=== PATIENT | female | born 1980 | race Caucasian/White ===

== ENCOUNTER → 2016-10-28 23:31 | Outpatient (CLI) | payer MEDICAID ==
[2014-01-29 10:36] VITALS: BMI 27.1
[~2016-10-28 23:31] MED LIST: ADIPEX-P37.5 MG PO; ESTRACE 0.5 MG0.5 MG PO; KLONOPIN0.5 MG PO
== END | disposition home or self-care (01) ==
LOC: D.LABREF 23:31
DX: E16.1 Other hypoglycemia (principal); R10.13 Epigastric pain

== ENCOUNTER → 2017-02-28 12:28 | Outpatient (CLI) | payer MEDICAID ==
[2014-01-29 10:36] VITALS: BMI 27.1
== END | disposition home or self-care (01) ==
LOC: D.CT 10:00
DX: R91.8 Other nonspecific abnormal finding of lung field (principal)

== ENCOUNTER → 2017-07-07 12:42 | Outpatient (CLI) | payer MEDICAID ==
[2014-01-29 10:36] VITALS: BMI 27.1
== END | disposition home or self-care (01) ==
LOC: D.RAD 12:42
DX: R13.12 Dysphagia, oropharyngeal phase (principal); K21.9 Gastro-esophageal reflux disease without esophagitis; K44.9 Diaphragmatic hernia without obstruction or gangrene

== ENCOUNTER → 2017-07-11 09:06 | Outpatient (CLI) | payer MEDICAID ==
[2014-01-29 10:36] VITALS: BMI 27.1
== END | disposition home or self-care (01) ==
LOC: D.RAD 09:00
DX: R13.12 Dysphagia, oropharyngeal phase (principal); K21.9 Gastro-esophageal reflux disease without esophagitis; K44.9 Diaphragmatic hernia without obstruction or gangrene

== ENCOUNTER → 2017-08-24 09:21 | Outpatient (CLI) | payer OTHER ==
[2014-01-29 10:36] VITALS: BMI 27.1
== END | disposition home or self-care (01) ==
LOC: D.OPS 09:21
DX: K21.0 Gastro-esophageal reflux disease with esophagitis (principal)

== ENCOUNTER 2017-09-08 09:26 | Emergency (ER) | payer OTHER ==
[2014-01-29 10:36] VITALS: BMI 27.1
== END 2017-09-08 11:20 | disposition home or self-care (01) ==
LOC: D.ER 09:26
DX: G43.909 Migraine, unspecified, not intractable, without status migrainosus (principal); V43.52XA Car driver injured in collision with other type car in traffic accident, initial encounter; Y93.89 Activity, other specified; Y92.410 Unspecified street and highway as the place of occurrence of the external cause

== ENCOUNTER 2017-11-29 13:43 | Emergency (ER) | payer OTHER ==
[~2017-11-29] VITALS: Ht 149.9 cm; Wt 64.3 kg
[2017-11-29 13:50] VITALS: Ht 149.9 cm; Wt 64.3 kg
[2017-11-29] MEDS ORDERED: ATIVAN1 MG PO (13:52)
[2017-11-29] MEDS ORDERED: AMITRIPTYLINE150 MG PO (13:53)
[2017-11-29] MEDS ORDERED: OMEPRAZOLE40 MG PO (13:53)
[2017-11-29] MEDS ORDERED: PEPCID20 MG PO (13:53)
[2017-11-29] MEDS ORDERED: SYMBICORT 16010.2 GM INH (13:54)
[2017-11-29] MEDS ORDERED: CELEXA40 MG PO (13:54)
[2017-11-29 14:38] LABS: BASOPHILS 0.7 % (0-2); EOSINOPHILS 8.7 % (0-7); HEMATOCRIT 38.5 % (36.0-48.0); HEMOGLOBIN 13.3 g/dL (12-16); IMMATURE GRANULOCYTES 0.3 % (0-5); LYMPHOCYTES 36.8 % (15-50); MCH 30.5 pg (26.0-34.0); MCHC 34.5 g/dL (31.0-37.0); MCV 88.3 fL (80.0-100.0); MEAN PLATELET VOLUME 8.9 fL (7.4-10.4); NEUTROPHILS 46.5 % (40-80); PLATELET COUNT 216 10x3/uL (130-400); RBC 4.36 10x6/uL (4.00-5.40); WBC 6.7 10x3/uL (4.8-10.8)
[2017-11-29 14:57] LABS: ALBUMIN 3.3 g/dL (3.4-5.0); ALKALINE PHOSPHATASE 72 U/L (46-116); ALT (SGPT) 30 U/L (10-68); CALC OSMOLALITY 283 mosm/kg (275-300); CALCIUM 8.4 mg/dL (8.5-10.1); CARBON DIOXIDE 28.6 mmol/L (21.0-32.0); CHLORIDE - SERUM 105 mmol/L (98-107); CREATININE - SERUM 0.7 mg/dL (0.6-1.3); GLUCOSE 117 mg/dL (74-106); POTASSIUM - SERUM 3.5 mmol/L (3.5-5.1); PROTEIN - SERUM 6.2 g/dL (6.4-8.2); SODIUM 143 mmol/L (136-145); UREA NITROGEN 8 mg/dL (7-18); eGFR NON AFRICAN AMERICAN > 90 mL/min (90-120)
[2017-11-29 15:08] LABS: CKMB 1.2 U/L (0.0-3.6); CREATINE KINASE 148 UL (21-215); TROPONIN-I < 0.017 ng/mL (0.000-0.060)
[2017-11-29] MEDS ORDERED: VIBRAMYCIN 100100 MG PO (15:40)
[2017-11-29 16:13] VITALS: BP 133/71
[2017-12-02 03:11] LABS: RMSF IGM 0.27 index (0.00-0.89)
[2017-12-04 15:23] LABS: EHRLICHIA CHAFF IGG Negative (Neg:<1:64); EHRLICHIA CHAFF IGM Negative (Neg:<1:20); HGE IGG TITER Negative (Neg:<1:64); HGE IGM TITER Negative (Neg:<1:20)
[2017-12-04 17:12] LABS: F. TULARENSIS - IGG Negative (()); F. TULARENSIS - IGM Negative (())
== END 2017-11-29 16:14 | disposition home or self-care (01) ==
LOC: D.ER 13:43
PROVIDERS: Family Medicine
DX: T14.8XXA Other injury of unspecified body region, initial encounter (principal); W57.XXXA Bitten or stung by nonvenomous insect and other nonvenomous arthropods, initial encounter; Y93.89 Activity, other specified; Y92.89 Other specified places as the place of occurrence of the external cause; R53.83 Other fatigue; R07.9 Chest pain, unspecified; R11.10 Vomiting, unspecified; R20.2 Paresthesia of skin; K21.9 Gastro-esophageal reflux disease without esophagitis; F17.200 Nicotine dependence, unspecified, uncomplicated

== ENCOUNTER 2018-01-09 11:38 | Emergency (ER) | payer OTHER ==
[~2018-01-09] VITALS: Ht 149.9 cm; Wt 65.9 kg
[~2018-01-09 11:38] MED LIST changes: +AMITRIPTYLINE150 MG PO; +ATIVAN1 MG PO; +CELEXA40 MG PO; +OMEPRAZOLE40 MG PO; +PEPCID20 MG PO; +SYMBICORT 16010.2 GM INH; +VIBRAMYCIN 100100 MG PO
[2018-01-09 11:52] VITALS: BP 116/81; Ht 149.9 cm; Wt 65.9 kg
[2018-01-09 12:20] LABS: APPEARANCE CLEAR (CLEAR); BILIRUBIN NEGATIVE (NEGATIVE); COLOR YELLOW (YELLOW); GLUCOSE NEGATIVE (NEGATIVE); KETONE NEGATIVE (NEGATIVE); NITRITE NEGATIVE (NEGATIVE); PROTEIN NEGATIVE (NEGATIVE); UROBILINOGEN NORMAL (NORMAL)
[2018-01-09 12:28] LABS: BASOPHILS 0.3 % (0-2); HEMATOCRIT 41.1 % (36.0-48.0); HEMOGLOBIN 14.3 g/dL (12-16); IMMATURE GRANULOCYTES 0.3 % (0-5); LYMPHOCYTES 14.2 % (15-50); MCH 30.6 pg (26.0-34.0); MCHC 34.8 g/dL (31.0-37.0); MCV 87.8 fL (80.0-100.0); MEAN PLATELET VOLUME 8.8 fL (7.4-10.4); MONOCYTES 10.2 % (2-11); PLATELET COUNT 220 10x3/uL (130-400); RBC 4.68 10x6/uL (4.00-5.40); RDW 13.4 % (11.5-14.5); WBC 11.3 10x3/uL (4.8-10.8)
[2018-01-09 13:04] LABS: ALBUMIN 3.4 g/dL (3.4-5.0); ALKALINE PHOSPHATASE 76 U/L (46-116); ALT (SGPT) 25 U/L (10-68); BILIRUBIN - TOTAL 0.18 mg/dL (0.2-1.3); CALC OSMOLALITY 275 mosm/kg (275-300); CALCIUM 8.7 mg/dL (8.5-10.1); CARBON DIOXIDE 28.3 mmol/L (21.0-32.0); CHLORIDE - SERUM 103 mmol/L (98-107); CREATININE - SERUM 0.8 mg/dL (0.6-1.3); GLUCOSE 102 mg/dL (74-106); LIPASE 99 U/L (73-393); PROTEIN - SERUM 6.3 g/dL (6.4-8.2); SODIUM 139 mmol/L (136-145); UREA NITROGEN 7 mg/dL (7-18); eGFR NON AFRICAN AMERICAN 86 mL/min (90-120)
[2018-01-09] MEDS ORDERED: COMPAZINE10 MG PO (15:10)
[2018-01-09] MEDS ORDERED: FLAGYL500 MG PO (15:10)
[2018-01-09] MEDS ORDERED: CIPRO500 MG PO (15:10)
== END 2018-01-09 16:05 | disposition home or self-care (01) ==
LOC: D.ER 11:38
PROVIDERS: Family Medicine
DX: K52.9 Noninfective gastroenteritis and colitis, unspecified (principal); R11.2 Nausea with vomiting, unspecified; K92.1 Melena

== ENCOUNTER → 2018-06-11 17:22 | Outpatient (CLI) | payer OTHER ==
[2018-01-09 11:52] VITALS: BMI 29.3
[~2018-06-11 17:22] MED LIST changes: +CIPRO500 MG PO; +COMPAZINE10 MG PO; +FLAGYL500 MG PO
== END | disposition home or self-care (01) ==
LOC: D.CT 17:00
DX: R91.8 Other nonspecific abnormal finding of lung field (principal)

== ENCOUNTER → 2018-11-22 14:22 | Outpatient (CLI) | payer OTHER ==
[2018-01-09 11:52] VITALS: BMI 29.3
--- NOTE | 2018-11-23 16:51 | EC ---
PATIENT:JOHN SUN DATE OF SERVICE: 11/22/18 SEX: F MEDICAL RECORD: [id number] DATE OF : [birth year] LOCATION:[facility] AGE OF PATIENT: 38 ADMISSION DATE: 11/22/18 REFERRING PHYSICIAN: INTERPRETING PHYSICIAN: TEJAS BENNETT MD ECHOCARDIOGRAM REPORT ECHO CHARGES 4 ECHO COMPLETE Date: 11/22/18 CLINICAL DIAGNOSIS: PALPITATIONS ECHOCARDIOGRAPHIC MEASUREMENTS (adult normal given) AC root (d.<3.7cm) 3.2 cm LV Septum d (<1.2 cm> 1.6 cm Valve Excursion 1.6 cm LV Septum (systole) 1.7 cm Left Atria (s.<4.0cm> 3.4 cm LVPW d(<1.2cm) 1.7 cm RV (d.<2.3cm) 2.8 cm LVPW (sytole) 1.9 cm LV diastole(<5.6CM) 3.5 cm MV E-F(>70mm/sec) cm LV systole 2.2 cm LVOT Diameter 1.5 cm MV exc.(>10mm) 1.3 cm Est.ejection fraction (50-75%) % DOPPLER: LVIT cm/sec A 67.0 cm/sec E 96.0 cm/sec LA cm/sec RVSP 32 mmHg LVOT 111 cm/sec AOP1/2T m/s Asc. Ao 129 cm/sec RVOT 77 cm/sec RA cm/sec PA 96 cm/sec AV Gradient Peak 6.65 mmHg AV Mean 3.74 mmHg AV Area 1.5 cm MV Gradient Peak 3.41 mmHg MV Mean 1.35 mmHg MV Area cm COMMENTS: Allergist/Immunologist Physician: Amalia KUHN Wire Straightening Machine Operator: 1 Dr. Bennett TAPE# PACS Pericardial Effusion N DATE OF SERVICE: 11/22/2018 ECHOCARDIOGRAM DATE OF SERVICE: 11/22/2018 FINDINGS: 1. Left ventricular chamber size is within normal limits. Left ventricular systolic function is normal. Overall ejection fraction estimated at 60%. 2. Left atrium, right atrium, and right ventricle chamber sizes are within ECHOCARDIOGRAM REPORT [id number] JOHN SUN normal limits. 3. Valvular structures have normal structure and motion. 4. Doppler interrogation reveals trace mitral regurgitation, mild tricuspid regurgitation, no other valvular insufficiency or stenosis. 5. No evidence of pericardial effusion or left ventricular thrombus. TRANSINT:[id number] Voice Confirmation ID: [id number] DOCUMENT ID: [id number] TEJAS BENNETT MD at 1651 CC: [id number] DICTATION DATE: 11/23/18 1043 MAIN ENTREE COOK AND CASHIER: 11/23/18 1058 DEP CLI 11/22/18 [place] [id number] [place] [id number]
== END | disposition home or self-care (01) ==
LOC: D.HCCARDIO 14:22
PROVIDERS: ATTEND Internal Medicine Interventional Cardiology
DX: R00.2 Palpitations (principal)

== ENCOUNTER 2019-12-09 22:56 | Emergency (ER) | payer OTHER ==
[~2019-12-09] VITALS: Ht 149.9 cm; Wt 57.3 kg
[2019-12-09 23:02] VITALS: BP 137/77; Ht 149.9 cm; Wt 57.3 kg
== END 2019-12-09 23:11 | disposition left against medical advice (07) ==
LOC: D.ER 22:56
DX: R53.1 Weakness (principal); H54.7 Unspecified visual loss